=== PATIENT | female | born 1980 | race Hispanic/Latino ===

== ENCOUNTER 2017-09-14 21:42 | Emergency (ER) | payer SELFPAY ==
[2017-09-14] MEDS ORDERED: Ketorolac Tromethamine 60 MG/2 ML VIAL ONE (22:47)
[2017-09-15 01:34] LABS: Bilirubin Negative (Negative); Blood, Urine Trace (Negative); Glucose, Urine (Dipstick) Negative (Negative); Ketone, Urine Negative (Negative); Nitrite Negative (Negative); Protein, Urine (Dipstick) Negative (Neg-Trace); Urobilinogen 0.2 mg/dL (0.2-1.0)
[2017-09-15 01:38] LABS: Bacteria/HPF 1+ HPF (None Seen); Hyaline Casts/LPF 0-3 HYALINE CAST LPF (0-3 Hyaline); RBC/HPF 0-3 HPF (0-3); WBC/HPF 0-3 HPF (0-3)
== END 2017-09-15 03:20 | disposition home or self-care (01) ==
LOC: ERS 21:42
DX: R07.89 Other chest pain (principal); R51 Headache
CPT/HCPCS: 81003; 81015; 81025; 85379; 93005; 96372; J1885

== ENCOUNTER 2017-10-17 15:01 | Emergency (ER) | payer MEDICARE, SELFPAY ==
[~2017-10-17 15:01] MED LIST: ISOVUE-370 76%-LOCM 1 ML ONE
[2017-10-17 17:05] LABS: Bilirubin Negative (Negative); Blood, Urine Small (Negative); Glucose, Urine (Dipstick) Negative (Negative); Ketone, Urine Trace mg/dL (Negative); Nitrite Negative (Negative); Protein, Urine (Dipstick) Negative (Neg-Trace); Urobilinogen 0.2 mg/dL (0.2-1.0)
[2017-10-17 17:08] LABS: Bacteria/HPF Rare-Few HPF (None Seen); Hyaline Casts/LPF 0-3 HYALINE CAST LPF (0-3 Hyaline); Squamous Epithelial 0-3 HPF (0-3); WBC/HPF 0-3 HPF (0-3)
[2017-10-17 18:13] LABS: #Basophils 0.1 thou/uL (0.0-0.2); #Eosinphils 0.3 thou/uL (0.0-0.7); #Lymphocytes 1.8 thou/uL (1.20-3.40); #Monocytes 0.9 thou/uL (0.11-0.59); %Eosinophils 2.5 % (0.0-10.0); %Lymphocytes 15.9 % (21.0-51.0); %Monocytes 8.3 % (0.0-10.0); Hematocrit 36.9 % (36.0-47.0); Mean Platelet Volume 8.5 fL (7.4-10.4); Red Blood Cell (RBC) Count 4.75 mill/uL (4.20-5.40); White Blood Cell (WBC) Count 11.1 thou/uL (4.8-10.8)
[2017-10-17 18:37] LABS: ALT (SGPT) 12 U/L (8-55); AST (SGOT) 16 U/L (5-34); Alkaline Phosphatase 87 U/L (40-150); Anion Gap 12 mmol/L (10-20); BUN (Urea Nitrogen) 16 mg/dL (7.0-18.7); Bilirubin, Total 0.2 mg/dL (0.2-1.2); Calc. Creatinine Clearance 0 mL/min (70-130); Calcium 9.1 mg/dL (7.8-10.44); Carbon Dioxide 24 mmol/L (22-29); Chloride 104 mmol/L (98-107); Estimated GFR-MDRD Greater than 90; Globulin 3.8 g/dL (2.4-3.5); Lipase 57 U/L (8-78); Protein, Total 7.7 g/dL (6.0-8.3)
[2017-10-17] MEDS ORDERED: Morphine 4 MG/ML VIAL ONE (20:15)
--- NOTE | 2017-10-17 22:58 | CT ---
CT OF THE ABDOMEN AND PELVIS WITH IV CONTRAST 10/17/17 PROVIDED CLINICAL HISTORY: Right lower quadrant abdominal pain. FINDINGS: The visualized lung bases are free of significant opacity. There is a 2.3 cm somewhat ill-defined hypodense lesion within the spleen, incompletely characterized on the basis of study. Several small hypodensities are seen involving the liver, too small to definitively characterize. The adrenal glands, pancreas, and kidneys appear unremarkable. There is apparent focal mural thickening involving a segment of the right colon in its mid portion. T his could be on the basis of nondistention. Other etiologies are possible including colitis. There is a heterogeneous appearance to the uterus with a focal area of enhancement involving the ante rior uterine myometrium compatible with fibroid. There is no bowel dilatation, inflammatory fat stranding, free fluid or free air apparent. The append ix is not distinctly identified without secondary evidence for acute appendicitis. The osseous structures demonstrate no concerning osteoblastic or osteolytic lesions. IMPRESSION: 1. Mural thickening involving a segment of ascending colon, which could reflect changes of colit is in the appropriate clinical context. This could also be on the basis of nondistention. 2. Hypodense lesion within the spleen, incompletely characterized on the basis of this study. Co rrelation with nonemergent followup abdominal MRI is recommended. 3. The appendix is not distinctly identified, without secondary CT evidence for acute appendicit is. POS: [facility]
== END 2017-10-17 23:02 | disposition home or self-care (01) ==
LOC: ERS 15:01
DX: K52.9 Noninfective gastroenteritis and colitis, unspecified (principal)
CPT/HCPCS: 36415; 74177; 80053; 81003; 81015; 81025; 83690; 85025; 96361; 96374; J2270

== ENCOUNTER 2018-02-16 11:23 | Emergency (ER) | payer MEDICARE ==
[2018-02-16 12:00] LABS: #Basophils 0.1 thou/uL (0.0-0.2); #Eosinphils 0.2 thou/uL (0.0-0.7); #Lymphocytes 1.6 thou/uL (1.20-3.40); #Monocytes 0.7 thou/uL (0.11-0.59); #Neutrophils 6.1 thou/uL (1.40-6.50); %Basophils 0.8 % (0.0-1.0); %Eosinophils 2.5 % (0.0-10.0); %Lymphocytes 18.4 % (21.0-51.0); %Monocytes 7.8 % (0.0-10.0); %Neutrophils 70.5 % (42.0-75.0); Hemoglobin 11.7 g/dL (12.0-16.0); Mean Corpuscular Hemoglobin 24.9 pg (27.0-31.0); Mean Corpuscular Volume 75.5 fl (81.0-99.0); Mean Platelet Volume 7.8 fL (7.4-10.4); Platelet Count 393 thou/uL (130-400); RBC Distribution Width 13.8 % (11.5-14.5); Red Blood Cell (RBC) Count 4.69 mill/uL (4.20-5.40); White Blood Cell (WBC) Count 8.7 thou/uL (4.8-10.8)
[2018-02-16 12:21] LABS: ALT (SGPT) 9 U/L (8-55); AST (SGOT) 15 U/L (5-34); Albumin 3.8 g/dL (3.5-5.0); Alkaline Phosphatase 89 U/L (40-150); Anion Gap 11 mmol/L (10-20); BUN (Urea Nitrogen) 8 mg/dL (7.0-18.7); Bilirubin, Total 0.3 mg/dL (0.2-1.2); Calc. Creatinine Clearance 0 mL/min (70-130); Calcium 8.6 mg/dL (7.8-10.44); Carbon Dioxide 24 mmol/L (22-29); Chloride 106 mmol/L (98-107); Estimated GFR-MDRD Greater than 90; Globulin 3.6 g/dL (2.4-3.5); Glucose 96 mg/dL (70-105); Lipase 47 U/L (8-78); Potassium 3.8 mmol/L (3.5-5.1); Protein, Total 7.4 g/dL (6.0-8.3); Sodium 137 mmol/L (136-145)
[2018-02-16] MEDS ORDERED: Ondansetron ODT 4 MG TAB ONE (13:01)
[2018-02-16 13:25] LABS: Bilirubin Negative (Negative); Blood, Urine Trace (Negative); Clarity CLEAR (Clear); Glucose, Urine (Dipstick) Negative (Negative); Leukocyte Small (Negative); Nitrite Negative (Negative); Protein, Urine (Dipstick) Negative (Neg-Trace); Specific Gravity, Urine 1.006 (1.002-1.036); Urobilinogen 0.2 mg/dL (0.2-1.0); pH, Urine 7.5 (5.0-9.0)
[2018-02-16 13:28] LABS: Bacteria/HPF None Seen HPF (None Seen); Hyaline Casts/LPF 0-3 HYALINE CAST LPF (0-3 Hyaline); Pathc Cast-AUWi Flag 0.58 (0-2.49); Pregnancy Test - Urine (BHCG) Negative (Negative); Pregu Control Background? CLEAR/WHITE (CLR/WHITE); Pregu Control Bar Appear? YES (CONTROL BAR); RBC/HPF 0-3 HPF (0-3); Specific Gravity 1.006 (1.002-1.036); Squamous Epithelial 0-3 HPF (0-3); WBC/HPF 0-3 HPF (0-3)
--- NOTE | 2018-02-16 15:47 | CT ---
ABDOMEN CT WITH CONTRAST PELVIC CT WITH CONTRAST 02/16/18 COMPARISON: 10/17/17 TECHNIQUE: An abdomen and pelvic CT are performed with IV contrast. Enteric contrast was also administered. Ya nal reformatted images are submitted for interpretation. FINDINGS: ABDOMEN CT: Lung bases are clear. Minimal eventration of the posterior left hemidiaphragm. Heart size is normal. No pericardial fluid. The descending thoracic aorta and abdominal aorta have a normal caliber. No per iaortic fat stranding. Symmetric attenuation of the psoas muscles. Intra and extrahepatic portal vein is patent. Stable hypodensities in the liver that are too small to characterize. No enhancing masses. Spleen, pa ncreas and adrenal glands are unremarkable. Unremarkable gallbladder. No gastrohepatic, retrocrural or periportal lymphadenopathy. No mesenteric mass, free air of free flu id. There are enlarged mesenteric lymph nodes which have developed since the previous examination. Fo r example, enlarged right upper quadrant lymph node measuring 0.9 x 0.7 cm. Central abdominal mesente lev lymph node measuring 0.9 x 1.0 cm. Gastric mucosa, duodenum, and multiple normal caliber small bowel loops are noted. There is circumfer ential mucosal thickening involving the hepatic flexure of the colon and proximal transverse colon. C ontrast passes through this area. The remainder of the colon is unremarkable. Ileocecal junction is n ormal. Normal caliber appendix. PELVIC CT: Enhancing mass in the uterine fundus suggesting a uterine leiomyoma, similar to the area of examinati on. Possible complex follicles in the left ovary. No pelvic lymphadenopathy, free air of free fluid. The urinary bladder is unremarkable. IMPRESSION: Mucosal thickening involving the right hemicolon as described above. There are adjacent mesenteric ly mph nodes as well as enlarged lymph node in the central abdominal mesentery. Given the rapid developm ent of this finding (this finding was not present in September 2017), an infectious or inflammatory pr ocess is favored. However, the overall decrease of pericolonic fat stranding does entertain the possi bility of a very aggressive neoplastic process. Colonoscopy is recommended. Results of the study discussed with Dr. Pelaez, 02/16/18 at 3:15 p.m. Code CR POS: [facility]
[2018-02-16] MEDS ORDERED: metroNIDAZOLE 500 MG/100 ML BAG ONE (15:50)
[2018-02-16] MEDS ORDERED: Iopamidol 370 76% 50 ML VIAL FS ONE (16:11)
[2018-02-16] MEDS ORDERED: ISOVUE-370 76%-LOCM 1 ML ONE (16:11)
== END 2018-02-16 17:21 | disposition home or self-care (01) ==
LOC: ERS 11:23
DX: K52.9 Noninfective gastroenteritis and colitis, unspecified (principal); H91.90 Unspecified hearing loss, unspecified ear
CPT/HCPCS: 36415; 74177; 80053; 81003; 81015; 81025; 83605; 83690; 85025; 87086; 96361; 96365; 96372; Q0162

== ENCOUNTER 2018-03-18 23:42 | Emergency (ER) | payer MEDICARE ==
[2018-03-19 00:32] LABS: #Eosinphils 0.2 thou/uL (0.0-0.7); #Lymphocytes 1.9 thou/uL (1.20-3.40); #Monocytes 0.8 thou/uL (0.11-0.59); #Neutrophils 6.7 thou/uL (1.40-6.50); %Basophils 0.4 % (0.0-1.0); %Eosinophils 2.1 % (0.0-10.0); %Lymphocytes 19.2 % (21.0-51.0); %Monocytes 8.6 % (0.0-10.0); %Neutrophils 69.6 % (42.0-75.0); Hemoglobin 11.1 g/dL (12.0-16.0); Mean Corpuscular Hemoglobin 24.9 pg (27.0-31.0); Mean Corpuscular Volume 75.5 fl (81.0-99.0); Mean Platelet Volume 8.1 fL (7.4-10.4); Platelet Count 328 thou/uL (130-400); RBC Distribution Width 14.3 % (11.5-14.5); Red Blood Cell (RBC) Count 4.47 mill/uL (4.20-5.40); White Blood Cell (WBC) Count 9.7 thou/uL (4.8-10.8)
[2018-03-19 00:45] LABS: ALT (SGPT) 12 U/L (8-55); AST (SGOT) 17 U/L (5-34); Alkaline Phosphatase 91 U/L (40-150); Anion Gap 10 mmol/L (10-20); BUN (Urea Nitrogen) 9 mg/dL (7.0-18.7); Bilirubin, Total 0.2 mg/dL (0.2-1.2); Calc. Creatinine Clearance 0 mL/min (70-130); Calcium 8.7 mg/dL (7.8-10.44); Carbon Dioxide 25 mmol/L (22-29); Chloride 104 mmol/L (98-107); Estimated GFR-MDRD Greater than 90; Globulin 3.7 g/dL (2.4-3.5); Glucose 90 mg/dL (70-105); Lipase 72 U/L (8-78); Protein, Total 7.7 g/dL (6.0-8.3); Sodium 136 mmol/L (136-145)
[2018-03-19 00:58] LABS: Bilirubin Negative (Negative); Blood, Urine Moderate (Negative); Clarity CLEAR (Clear); Glucose, Urine (Dipstick) Negative (Negative); Leukocyte Negative (Negative); Nitrite Negative (Negative); Pregnancy Test - Urine (BHCG) Negative (Negative); Pregu Control Background? CLEAR/WHITE (CLR/WHITE); Pregu Control Bar Appear? YES (CONTROL BAR); Protein, Urine (Dipstick) Negative (Neg-Trace); Specific Gravity 1.015 (1.002-1.036); Specific Gravity, Urine 1.015 (1.002-1.036); Urobilinogen 0.2 mg/dL (0.2-1.0); pH, Urine 5.5 (5.0-9.0)
[2018-03-19 01:01] LABS: Bacteria/HPF None Seen HPF (None Seen); Hyaline Casts/LPF 0-3 HYALINE CAST LPF (0-3 Hyaline); Pathc Cast-AUWi Flag 0.29 (0-2.49); RBC/HPF 0-3 HPF (0-3); Squamous Epithelial 0-3 HPF (0-3); WBC/HPF 0-3 HPF (0-3)
[2018-03-19] MEDS ORDERED: Morphine 4 MG/ML VIAL ONE (02:07)
[2018-03-19] MEDS ORDERED: Ondansetron ODT 4 MG TAB ONE (02:07)
[2018-03-19] MEDS ORDERED: ISOVUE-370 76%-LOCM 1 ML ONE (06:32)
--- NOTE | 2018-03-19 08:29 | CT ---
PRELIMINARY REPORT/[facility]/EMERGENTY AFTER-HOURS PROCEDURE CT Abdomen and Pelvis With Intravenous Contrast CLINICAL HISTORY: 38 years old, female; Pain; Abdominal pain; Localized; Other: Mid abdominal; Patient HX: Patient pres ents to er C/O abdominal pain localized to midabdominal area. Patient stating that pain is like a twi sting, pressure. States that pain is intermittent. Started two days ago. Denies any urinary complaints TECHNIQUE: Axial computed tomography images of the abdomen and pelvis with intravenous contrast. Coronal reforma tted images were created and reviewed. COMPARISON: No relevant prior studies available. FINDINGS: Lung bases: Unremarkable. No mass. No consolidation. A small hiatal hernia is detected. ABDOMEN: Liver: Hepatomegaly. Faint hypodensities are too small to characterize Gallbladder and bile ducts: Question faint non-calcified stones. No ductal dilation. Pancreas: Calcification in the pancreatic tail presumably related to remote inflammation No mass. No ductal dilation. Spleen: Unremarkable. No splenomegaly. Adrenals: Unremarkable. No mass. Kidneys and ureters: Unremarkable. No solid mass. No hydronephrosis. Stomach and bowel: Unremarkable. No obstruction. No mucosal thickening. PELVIS: Appendix: No findings to suggest acute appendicitis. Bladder: Unremarkable. No mass. Reproductive: Presumed uterine fibroid measuring up to 2.7 cm ABDOMEN and PELVIS: Intraperitoneal space: Unremarkable. No free air. No significant fluid collection. Bones/joints: No acute fracture. No dislocation. Soft tissues: Unremarkable. Vasculature: Unremarkable. No abdominal aortic aneurysm. Lymph nodes: Unremarkable. No enlarged lymph nodes. IMPRESSION: Nonspecific nonobstructed bowel gas pattern Question faint noncalcified gallstones Uterine fibroid incidentally noted Thank you for allowing us to participate in the care of your patient. Dictated and Authenticated by: Walt Curry MD 03/19/2018 2:55 AM Central Time ([place] & [place]) FINAL REPORT EMERGENT AFTER HOURS CT ABDOMEN AND PELVIS: DATE: 03/19/18. HISTORY: Abdominal pain localized to the mid abdominal region. The pain is intermittent and started 2 days ag o. COMPARISON: 02/16/18. IMPRESSION: 1. Enlargement of the liver in craniocaudal dimensions with craniocaudal measurement of 20.[address] able subcentimeter too small to characterize hypodense lesions are again seen in the liver. 2. Stable calcification of the pancreatic tail which may be sequelae of prior pancreatitis. 3. Stable heterogeneously enhancing mass within the uterine fundus which may represent a uterine fib roid. 4. Improvement in colonic wall thickening in the region of the hepatic flexure. This may be related to improvement in inflammatory/infectious process. However, there does appear to be small residual focal area of thickening present which could be related to peristalsis. The prominent lymph nodes in this region are again seen and stable in size, the largest measuring approximately 1 cm. The residu al colonic wall thickening is not mentioned and this is difficult to evaluate without GI contrast but does appear improved from the prior study but does persist. Followup to complete resolution is sugg ested. Colonoscopy may be beneficial for further evaluation as well if this has not been performed. 5. No other interval change from the prior exam. 6. Findings are in agreement with the preliminary report by [facility]. The findings were discussed with Dr. Cuba in the emergency department 03/19/18 at 7:51 hours. CODE CR POS: [facility]
== END 2018-03-19 04:53 | disposition home or self-care (01) ==
LOC: ERS 23:42
DX: K52.9 Noninfective gastroenteritis and colitis, unspecified (principal)
CPT/HCPCS: 36415; 74177; 80053; 81003; 81015; 81025; 82274; 83690; 85025; 96374; J2270; Q0162

== ENCOUNTER 2018-04-01 01:39 | Emergency (ER) | payer MEDICARE ==
[2018-04-01] MEDS ORDERED: Dexamethasone 10 MG/ML VIAL ONE (03:41)
[2018-04-01] MEDS ORDERED: diphenhydrAMINE 50 MG/ML VIAL ONE (03:41)
[2018-04-01] MEDS ORDERED: Famotidine 20 MG TAB ONE (03:41)
== END 2018-04-01 04:50 | disposition home or self-care (01) ==
LOC: ERS 01:39
DX: L50.0 Allergic urticaria (principal)
CPT/HCPCS: 96372; J1100; J1200

== ENCOUNTER 2018-07-25 22:12 | Emergency (ER) | payer MEDICARE ==
[2018-07-25 22:50] LABS: #Eosinphils 0.3 thou/uL (0.0-0.7); #Lymphocytes 2.1 thou/uL (1.20-3.40); #Monocytes 0.7 thou/uL (0.11-0.59); #Neutrophils 5.6 thou/uL (1.40-6.50); %Basophils 0.5 % (0.0-1.0); %Lymphocytes 23.4 % (21.0-51.0); %Monocytes 7.9 % (0.0-10.0); %Neutrophils 64.2 % (42.0-75.0); Hemoglobin 11.5 g/dL (12.0-16.0); Mean Corpuscular Hemoglobin 24.2 pg (27.0-31.0); Mean Platelet Volume 8.4 fL (7.4-10.4); Platelet Count 374 thou/uL (130-400); RBC Distribution Width 15.2 % (11.5-14.5); Red Blood Cell (RBC) Count 4.77 mill/uL (4.20-5.40); White Blood Cell (WBC) Count 8.8 thou/uL (4.8-10.8)
[2018-07-25 22:55] LABS: BHCG - Serum Negative (NEGATIVE); Pregs Control Background? CLEAR/WHITE (CLR/WHITE); Pregs Control Bar Appear? YES (CONTROL BAR)
[2018-07-25 23:02] LABS: Bilirubin Negative (Negative); Blood, Urine Small (Negative); Clarity CLEAR (Clear); Glucose, Urine (Dipstick) Negative (Negative); Leukocyte Trace (Negative); Nitrite Negative (Negative); Protein, Urine (Dipstick) Negative (Neg-Trace); Urobilinogen 0.2 mg/dL (0.2-1.0)
[2018-07-25 23:04] LABS: Bacteria/HPF None Seen HPF (None Seen); Hyaline Casts/LPF 0-3 HYALINE CAST LPF (0-3 Hyaline); Pathc Cast-AUWi Flag 0.29 (0-2.49); Squamous Epithelial 0-3 HPF (0-3); WBC/HPF 0-3 HPF (0-3)
[2018-07-25 23:10] LABS: ALT (SGPT) 9 U/L (8-55); AST (SGOT) 12 U/L (5-34); Albumin 3.9 g/dL (3.5-5.0); Alkaline Phosphatase 99 U/L (40-150); Anion Gap 11 mmol/L (10-20); BUN (Urea Nitrogen) 12 mg/dL (7.0-18.7); Bilirubin, Total 0.2 mg/dL (0.2-1.2); Calc. Creatinine Clearance 0 mL/min (70-130); Calcium 8.6 mg/dL (7.8-10.44); Carbon Dioxide 25 mmol/L (22-29); Chloride 107 mmol/L (98-107); Estimated GFR-MDRD Greater than 90; Globulin 3.6 g/dL (2.4-3.5); Glucose 82 mg/dL (70-105); Lipase 76 U/L (8-78); Potassium 3.1 mmol/L (3.5-5.1); Protein, Total 7.5 g/dL (6.0-8.3); Sodium 140 mmol/L (136-145)
[2018-07-26] MEDS ORDERED: Mag-Al 1200 mg/1200 mg/30 ML UDCUP ONE (00:09)
[2018-07-26] MEDS ORDERED: Lidocaine Viscous Sol 2% 15 ml UD Cup ONE (00:09)
--- NOTE | 2018-07-26 08:50 | CT ---
PRELIMINARY REPORT/[facility]/EMERGENTY AFTER-HOURS PROCEDURE CT Abdomen and Pelvis With Intravenous Contrast CLINICAL HISTORY: 38 years old, female; Pain; Abdominal pain; Patient HX: F38 presents to ed C/O abdominal pain that on set suddenly monday. The pain started as epigastric, but is now periumbilical. On monday, pt went to her pcp, was given omeprazole, and took the first pill this morning and has experienced no relief. L mp was july 19 TECHNIQUE: Axial computed tomography images of the abdomen and pelvis with intravenous contrast. Coronal reformatted images were created and reviewed. COMPARISON: No relevant prior studies available. FINDINGS: Lung bases: Linear atelectasis and/or scarring within the left lower lobe. ABDOMEN: Liver: 6 mm hypodense focus within the anterior segment right hepatic lobe, possibly cyst or hemangio ma, but not definitively characterized on this study. Mild hepatomegaly. Gallbladder and bile ducts: Normal. Pancreas: Normal. Spleen: Normal. Adrenals: Normal. Kidneys and ureters: Normal. Stomach and bowel: Mild wall thickening of the transverse, descending, and sigmoid colon, with minima l adjacent associated inflammatory stranding, most compatible with infectious/inflammatory colitis. PELVIS: Appendix: No findings to suggest acute appendicitis. Bladder: Normal. Reproductive: Normal as visualized. ABDOMEN and PELVIS: Intraperitoneal space: Normal. No free air. No significant fluid collection. Bones/joints: No acute fracture. No dislocation. Soft tissues: Normal. Vasculature: Normal. No abdominal aortic aneurysm. Lymph nodes: Few small lymph nodes within the mesenteric root in transverse pericolonic fat, likely r eactive. IMPRESSION: 1. Mild wall thickening of the transverse, descending, and sigmoid colon, with minimal adjacent assoc iated inflammatory stranding, most compatible with infectious/inflammatory colitis. 2. Incidental/non-acute findings are described above. Thank you for allowing us to participate in the care of your patient. Dictated and Authenticated by: Stephen Ybarra MD 07/26/2018 1:02 AM Central Time ([place] & [place]) FINAL REPORT CT ABDOMEN AND PELVIS WITH IV CONTRAST: Date: 07/26/18 FINDINGS/IMPRESSION: I agree with the preliminary report given by Amber. POS: [facility]
[2018-07-26] MEDS ORDERED: ISOVUE-370 76%-LOCM 1 ML ONE (14:47)
== END 2018-07-26 01:22 | disposition home or self-care (01) ==
LOC: ERS 22:12
DX: N39.0 Urinary tract infection, site not specified (principal); K29.70 Gastritis, unspecified, without bleeding; K52.9 Noninfective gastroenteritis and colitis, unspecified
CPT/HCPCS: 74177; 80053; 81003; 81015; 83690; 84703; 85025; 86140

== ENCOUNTER 2018-07-29 21:14 | Emergency (ER) | payer MEDICARE ==
[2018-07-29 22:03] LABS: Bilirubin Negative (Negative); Blood, Urine Negative (Negative); Clarity CLOUDY (Clear); Glucose, Urine (Dipstick) Negative (Negative); Leukocyte Small (Negative); Nitrite Negative (Negative); Protein, Urine (Dipstick) Negative (Neg-Trace); Specific Gravity, Urine 1.021 (1.002-1.036); Urobilinogen 0.2 mg/dL (0.2-1.0); pH, Urine 6.5 (5.0-9.0)
[2018-07-29 22:04] LABS: #Basophils 0.1 thou/uL (0.0-0.2); #Eosinphils 0.2 thou/uL (0.0-0.7); #Lymphocytes 1.7 thou/uL (1.20-3.40); #Monocytes 0.8 thou/uL (0.11-0.59); #Neutrophils 5.5 thou/uL (1.40-6.50); %Basophils 0.8 % (0.0-1.0); %Lymphocytes 20.2 % (21.0-51.0); %Monocytes 9.8 % (0.0-10.0); %Neutrophils 66.3 % (42.0-75.0); Hemoglobin 10.9 g/dL (12.0-16.0); Mean Corpuscular HGB CONC 31.6 g/dL (32.0-36.0); Mean Corpuscular Hemoglobin 24.3 pg (27.0-31.0); Mean Corpuscular Volume 77.1 fL (78.0-98.0); Mean Platelet Volume 8.8 fL (7.4-10.4); Platelet Count 341 thou/uL (130-400); White Blood Cell (WBC) Count 8.2 thou/uL (4.8-10.8)
[2018-07-29 22:04] LABS: Bacteria/HPF 1+ HPF (None Seen); Hyaline Casts/LPF 4-6 HYALINE CAST LPF (0-3 Hyaline); Pathc Cast-AUWi Flag 1.01 (0-2.49)
[2018-07-29 22:16] LABS: Pregu Control Background? CLEAR/WHITE (CLR/WHITE); Pregu Control Bar Appear? YES (CONTROL BAR); Specific Gravity 1.021 (1.002-1.036)
[2018-07-29 22:17] LABS: Pregnancy Test - Urine (BHCG) Negative (Negative)
[2018-07-29 22:26] LABS: ALT (SGPT) 10 U/L (8-55); AST (SGOT) 15 U/L (5-34); Albumin 3.6 g/dL (3.5-5.0); Alkaline Phosphatase 84 U/L (40-150); Anion Gap 9 mmol/L (10-20); BUN (Urea Nitrogen) 11 mg/dL (7.0-18.7); Bilirubin, Total 0.2 mg/dL (0.2-1.2); Calc. Creatinine Clearance 0 mL/min (70-130); Calcium 8.3 mg/dL (7.8-10.44); Carbon Dioxide 26 mmol/L (22-29); Chloride 106 mmol/L (98-107); Estimated GFR-MDRD Greater than 90; Globulin 3.3 g/dL (2.4-3.5); Glucose 99 mg/dL (70-105); Lipase 70 U/L (8-78); Potassium 3.2 mmol/L (3.5-5.1); Protein, Total 6.9 g/dL (6.0-8.3); Sodium 138 mmol/L (136-145)
[2018-07-29] MEDS ORDERED: Morphine 2 MG/ML SYRINGE ONE (22:57)
[2018-07-29] MEDS ORDERED: Ketorolac Tromethamine 30 MG/ML VIAL ONE (22:57)
== END 2018-07-30 00:55 | disposition home or self-care (01) ==
LOC: ERS 21:14
DX: K52.9 Noninfective gastroenteritis and colitis, unspecified (principal); Z79.899 Other long term (current) drug therapy
CPT/HCPCS: 80053; 81003; 81015; 81025; 83690; 85025; 96374; 96375; J1885; J2270

== ENCOUNTER 2018-08-17 09:10 | Day surgery (SDC) | payer MEDICARE ==
[2018-08-16 10:41] VITALS: BMI 29.2
--- NOTE | 2018-08-17 13:56 | OP ---
DATE OF PROCEDURE: 08/17/2018 SURGEON: Philippe Patrick M.D. NEURO UROLOGIST SURGEON: None. PROCEDURES: 1. Esophagogastroduodenoscopy, diagnostic. 2. Colonoscopy with biopsies. PREOPERATIVE DIAGNOSES: 1. Hematochezia. 2. Generalized abdominal pain. 3. Nausea and vomiting. 4. Microcytic anemia. 5. Abnormal CT of the abdomen suggesting colitis. MEDICATIONS: See anesthesia record. FINDINGS: After discussion of the risks, benefits and alternatives of the procedure, informed consen t was obtained and witnessed. Pre-endoscopic cardiopulmonary examination was satisfactory. Timeout was performed before sedation was achieved. Sedation was achieved with anesthesia assistance in the endoscopy unit. A Pentax adult upper endoscope was placed into the oropharynx and passed through the cricopharyngeus under direct visualization. The esophageal mucosa appeared normal throughout with a normal-appearing Z-line. The endoscope was passed into the stomach. Forward and retroflexed views of the entire gastric mucosa were obtained. The gastric mucosa appeared normal throughout. The endo scope was advanced through the pylorus and into the first and second portions of the duodenum, which also appeared normal. The upper endoscope was completely withdrawn and the patient was repositioned. Digital rectal exam was performed which was unremarkable. A Pentax adult colonoscope was inserted in to the anus and passed forward to the cecum in the usual fashion. The cecal base was identified by t he appendiceal orifice as well as the ileocecal valve. The terminal ileum was intubated and the ilea l mucosa appeared normal. The colonoscope was then slowly withdrawn in a gradual and circumferential manner with careful examination of the entire colonic mucosa. The quality of the prep was good. Th e mucosa of the cecum and ascending colon appeared normal. At the level of the hepatic flexure and distally all the way to the rectum from this point, there is moderate to severe diffuse confluent colitis. This was characterized by friability, erythema, edema, and multiple erosions with a lot of mucus production. Overall, findings are suspicious for ulcerati ve colitis from the rectum to the hepatic flexure. I obtained biopsies from multiple levels includin g the transverse colon, descending colon, and sigmoid colon for histology. Retroflexion in the rectu m demonstrated no additional abnormalities. The colonoscope was completely withdrawn and the patient allowed to recover. The patient tolerated the procedure well. There were no immediate post-procedu re complications. IMPRESSION: 1. Normal esophagogastroduodenoscopy. 2. Moderate to severe diffuse confluent colitis from the rectum to the hepatic flexure, with sparing of the ascending colon and cecum. 3. Normal terminal ileum. 4. Overall, findings are suspicious for moderate to severe ulcerative colitis involving the rectum t o the hepatic flexure. RECOMMENDATIONS: 1. Follow up pathology on the colon biopsies. 2. I am starting her on prednisone 40 mg p.o. daily for now at least until clinic followup. 3. Follow up in the GI Clinic with either Dr. Muniz or his Physician Unloading Checker in the next 1-2 weeks . Anticipate the patient will be needing to get started on biologic therapy, depending on biopsy res ults.
[2018-08-17] MEDS ORDERED: PROPOFOL 200 MG/20 ML VIAL ONE (14:28)
[2018-08-17] MEDS ORDERED: Lidocaine 1% PF 5 ML VIAL ONE (14:28)
== END 2018-08-17 14:00 | disposition home or self-care (01) ==
LOC: SDC 09:10
PROVIDERS: ATTEND Internal Medicine
PROC: 0DJ08ZZ Inspection of Upper Intestinal Tract, Via Natural or Artificial Opening Endoscopic (ICD-10-PCS; principal; 2018-08-17)
PROC: 0DBM8ZX Excision of Descending Colon, Via Natural or Artificial Opening Endoscopic, Diagnostic (ICD-10-PCS; 2018-08-17)
PROC: 0DBL8ZX Excision of Transverse Colon, Via Natural or Artificial Opening Endoscopic, Diagnostic (ICD-10-PCS; 2018-08-17)
PROC: 0DBN8ZX Excision of Sigmoid Colon, Via Natural or Artificial Opening Endoscopic, Diagnostic (ICD-10-PCS; 2018-08-17)
DX: K52.9 Noninfective gastroenteritis and colitis, unspecified (principal); K21.9 Gastro-esophageal reflux disease without esophagitis; D50.9 Iron deficiency anemia, unspecified; H91.93 Unspecified hearing loss, bilateral; Z79.891 Long term (current) use of opiate analgesic
CPT/HCPCS: 88305; J2001; J2704